=== PATIENT | male | born 1970 | race Caucasian/White ===

== ENCOUNTER → 2023-11-11 07:31 | Outpatient (REF) | payer OTHER, SELFPAY | LOC: RAD 07:31 | PROVIDERS: ATTENDING PHYSICIAN Family Medicine | DX: G89.29 Other chronic pain (principal); R74.8 Abnormal levels of other serum enzymes | CPT/HCPCS: 76700 ==

== ENCOUNTER → 2023-12-27 07:34 | Outpatient (REF) | payer OTHER, SELFPAY | LOC: RAD 07:34 | PROVIDERS: ATTENDING PHYSICIAN Internal Medicine Gastroenterology; FAMILY PHYSICIAN Family Medicine | DX: R79.89 Other specified abnormal findings of blood chemistry (principal) | CPT/HCPCS: 76700; 93975 ==

== ENCOUNTER 2024-01-09 18:01 | Emergency (ER) | payer OTHER, SELFPAY ==
[2024-01-09 18:02] VITALS: BP 164/100
[2024-01-09] MEDS: DILAUDID 1 MG IV (18:17)
[2024-01-09] MEDS: ZOFRAN 4 MG IV (18:20)
[2024-01-09] MEDS: NSS 1000 IV (18:21)
[2024-01-09 18:23] LABS: % Basophils 0.2 % (0-2); % Eosinophils 2.9 % (0-6); % Immature Granulocytes 0.2 % (0-0.5); % Lymphocytes 33.3 % (20.5-51.1); % Monocytes 10.2 % (1.7-9.3); % Neutrophils 53.2 % (42.2-75.2); Absolute Eosinophils 0.2 10^3/uL (0-0.7); Absolute Lymphocytes 2.7 10^3/uL (1.2-3.4); Absolute Monocytes 0.8 10^3/uL (0.1-0.6); Absolute Neutrophils 4.3 10^3/uL (1.4-6.5); Hematocrit 40.1 % (39.0-52.0); Hemoglobin 13.5 g/dL (13.0-18.0); Mean Corp Hgb Conc. 33.7 g/dL (33.0-37.0); Mean Corpuscular Hgb 29.3 pg (27.0-31.0); Mean Corpuscular Volume 87.2 fL (80.0-94.0); Mean Platelet Volume 10.4 fL (7.4-10.4); Nucleated Red Blood Cells % 0 % (-); Platelet Count 263 10^3/uL (130-400)
[2024-01-09] MEDS: TORADOL 30 MG IV (18:26)
[2024-01-09 18:32] VITALS: BMI 28.8
[2024-01-09 18:41] LABS: ALT (SGPT) 35 U/L (0-50); AST (SGOT) 36 U/L (17-59); Albumin 5.4 g/dl (3.5-5.0); Alkaline Phosphatase 54 U/L (38-126); Blood Urea Nitrogen 20 mg/dl (9-20); Calcium 11.2 mg/dl (8.4-10.2); Carbon Dioxide 20 mmol/L (22-30); Chloride 106 mmol/L (98-107); Estimated Creatinine Clearance 67 ml/min; Glucose 117 mg/dl (70-99); Sodium 143 mmol/L (135-145); Total Bilirubin 0.3 mg/dl (0.2-1.3); Total Protein 8.3 g/dl (6.3-8.2); eGFR > 60.00
--- NOTE | 2024-01-09 18:43 | ED.GENMED ---
History of Present Illness
General
Chief Complaint: Flank Pain
Source: patient
Exam Limitations: none
Time Seen by Provider: 01/09/24 18:10
History of Present Illness
History of Present Illness:
This is a 53 year old male that comes in with c/o right flank pain. States that this morning he had a dull pain. States that he got home from work and the pain increased to severe pain. States that he is nauseated and has been diaphoretic. Denies
any fever, chills, chest pain, SOB, abd pain, vomiting, diarrhea, headache, dizziness, urinary burning.
Past History
Past History
ED Past Medical History: HTN, Hypercholesterolemia and Other (Headaches, PNA, Renal calculus, Anemia, )
ED Past Surgical History: Orthopedic (Left hand repair with screw) and Other (Hernia repair)
Social History
Tobacco: Non-smoker
Alcohol: Occasional
Drug: Marijuana
Personal:
Living: with family
Employment: Employed
Review of Systems
Review of Systems
All Other Systems: ROS reviewed and negative except as documented in HPI and ROS
Constitutional: Denies fever or chills
EENT: Reports no symptoms
Respiratory: Reports no symptoms; Denies cough or trouble breathing
Cardiac: Reports no symptoms; Denies chest pain
ABD/GI: Reports nausea; Denies abdominal pain, vomiting or diarrhea
: Reports flank pain (Right sided); Denies dysuria, frequency or urgency
Musculoskeletal: Reports no symptoms
Skin: Reports no symptoms
Neurological: Reports no symptoms; Denies dizzy or headache
Psychiatric: Reports no symptoms
Phy Exam
General Physical Exam
General Presentation: moderate distress
General age: appears stated age
General Skin: cool and diaphoretic
General Habitus: normal
General Mental: alert
General Hydration: appears well hydrated
ENT Exam
ENT Exam: TM's normal, pharynx normal and neck supple
Eye Exam
Eye Exam: EOMI
Cardiovascular Exam
Cardiovascular Exam: regular rate/rhythm, no edema, no murmur and normal peripheral pulses
Pulmonary Exam
Pulmonary Exam: lungs clear, no respiratory distress, no rales, chest non tender, no crackles, no rhonchi, no wheezing and no cough
Gastrointestinal Exam
Gastrointestinal Exam: normal bowel sounds, non tender, soft, no organomegaly, no pulsatile mass, non distended and no cva tenderness
Musculoskeletal Exam
Musculoskeletal Exam: full ROM and no edema
Skin Exam
Skin Exam: normal color, no rash and diaphoresis
Psychiatric Exam
Psychiatric Exam: normal mood/affect
Course
Orders/Labs/Results
Orders:
Orders
01/09/24 18:07
IV Insert/Care/Rem.- Treatment PRN
01/09/24 18:13
Complete Blood Count/With Diff Urgent
Comprehensive Metabolic Panel Urgent
01/09/24 18:14
Ondansetron Injectable [Zofran] 4 mg .ROUTE .STK-MED ONE
01/09/24 18:16
HYDROmorphone [Dilaudid] 1 mg IV NOW STA
01/09/24 18:20
Ondansetron Injectable [Zofran] 4 mg IV NOW STA
01/09/24 18:21
0.9% Sodium Chloride 500 ml [Nss] 1,000 ml IV BOLUS
01/09/24 18:24
Ketorolac [Toradol] 30 mg .ROUTE .STK-MED ONE
01/09/24 18:26
Ketorolac [Toradol] 30 mg IV NOW STA
01/09/24 18:42
CT Abd/pel Without Iv Or Oral Urgent
Comment:
Reason For Exam: Right flank pain
01/09/24 19:41
Urinalysis Reflex To Culture Urgent
Date Specimen was Collected: 01/09/24
Time Specimen was Collected: 19:38
Urine Microscopic Reflex Cult Urgent
Abnormal Lab Results
01/09/24 01/09/24
18:13 19:41
RBC 4.60 L 10^6/uL
(4.70-6.10)
Absolute Monos (auto) 0.8 H 10^3/uL
(0.1-0.6)
Monocytes % 10.2 H %
(1.7-9.3)
Carbon Dioxide 20 L mmol/L
(22-30)
Glucose 117 H mg/dl
(70-99)
Calcium 11.2 H mg/dl
(8.4-10.2)
Total Protein 8.3 H g/dl
(6.3-8.2)
Albumin 5.4 H g/dl
(3.5-5.0)
Ur Occult Blood Reflex 3+ A
(Negative)
Leukocyte Esterase Rfl Trace A
(Negative)
Urine RBC 11-15 A /HPF
(0-2)
Urine Bacteria (Reflex) Few A
(Negative)
01/09/24 18:13
01/09/24 18:13
carbon dioxide slightly low. Hyperglycemia. Hypercalcemia, Urine is negative for infection.
Vital Signs
Initial and Last Documented VS:
Initial Vital Signs
Pulse Resp BP Pulse Ox
64 28 164/100 100
01/09/24 18:02 01/09/24 18:02 01/09/24 18:02 01/09/24 18:02
Last Documented Vital Signs
Temp Pulse Resp BP Pulse Ox
97.8 F 69 20 128/82 100
01/09/24 21:22 01/09/24 21:22 01/09/24 21:22 01/09/24 21:22 01/09/24 21:22
MDM/Problems Addressed
Differential Diagnosis Includes:
Renal calculus,
MDM/Problems Addressed:
This is a 53 year old male that comes in with c/o right flank pain. States that it started dull this morning and but then has become severe after getting home toninght.
Will check labs, CT scan and medicate for pain and given IV fluids
Back into see patient. Explained that he has a 3mm stone that is almost to the bladder. Will place patient on Flomax. Patient will also have prescription for Zofran and Percocet sent to his pharmay. Patient can use Tylenol and IBuprofen for lesser
pain. Strain his urine and follow up with the Urologist. Patient to return with any concerns.
Chronic conditions affecting care:
Renal caclulus
Acute Exacerbation and/or Progression of Chronic Illness:
Renal calculus
*Radiology
Radiology exam reviewed: radiology read reviewed (CT-3mm obstructing stone within the distal right ureter with associated mild hydroureteronephrosis. There are additional nonobstructing stones on the left measuring up to 4mm. )
*Pulse Oximetry
Patient hypoxic: no
*EKG
Interpreted by ED Provider?: NA
Rate: EKG- N/A
*Hand Picker Interpretation
Rate: Hand Picker- N/A
*Critical Care Note
Total Time (30-74mins, 75-104mins- exclusive of procedures): Not Applicable
ED Attending Note
-
Portions of this chart may have been created with voice recognition software.� Occasional wrong word or��sound alike� substitutions may have occurred due to the inherent limitations of voice recognition software.
Discharge Plan
Departure
Patient Disposition: Home (Routine Discharge)
Date of Disposition: 01/09/24
Time of Disposition: 21:50
Patient with high blood pressure during this ER visit?: Yes
Condition: Good
Covid-19: Not Applicable
Discharge Problem:
Renal calculus, right
Instructions: Renal Colic (DC), How to Strain Your Urine, BLOOD PRESSURE, Narcotic Pain Medication
Prescriptions:
New
tamsulosin [Flomax] 0.4 mg capsule
0.4 mg PO HS Qty: 7 0RF
ondansetron 4 mg tablet,disintegrating
4 mg PO Q8H PRN (Reason: nausea and vomiting) Qty: 10 0RF
oxycodone-acetaminophen [Endocet] 5-325 mg tablet
1 tab PO Q6H PRN (Reason: Pain) Qty: 7 0RF
No Action
atorvastatin 10 mg Tablet
20 mg PO DAILY
lisinopril 10 mg Tablet
10 mg PO DAILY
sertraline [Zoloft] 20 mg/mL Concentrate
100 mg PO DAILY
fenofibrate
134 mg PO DAILY
Referrals:
Raúl Crystal MD [Active] - Follow up in 5-7 days
Koko Ríos MD [Family Provider] -
Activity Restrictions/Additional Instructions:
As discussed, you have a 3mm stone that is almost to the bladder. There are other stones noted on the left but until they move out of the kidney the normally do not cause pain. Please increase your water intake to 8-8oz glasses daily. You have had
three prescription sent to your Pharmacy. You may use Ibuprofen 600mg every 6 hours with food for lesser pain. You have had a prescription for Zofran which will help with any nausea/vomiting. The second is Flomax which will help relax the smooth
muscle so you can pass the stone and the last is a narcotic pain medication for severe pain. Please do not take any extra Tylenol as Percocet has Tylenol in it. Please strain your urine. Follow up with the Urologist in the next 5-7 days. IF YOU
HAVE INCREASED OR CHANGING PAIN, FEVER, ARE UNABLE TO URINATE OR YOU HAVE ANY OTHER CONCERNS PLEASE RETURN TO THE EMERGENCY ROOM.
Interventions
Interventions:
*Risk Screen - Suicide Last Done: 01/09/24 18:28
*General Assessment Last Done: 01/09/24 18:27
*Neglect/Abuse Screening Last Done: 01/09/24 18:28
ED- Fall Risk Assessment Last Done: 01/09/24 18:28
*ED COVID-19 Vaccine History Last Done: 01/09/24 18:27
HE-Oasibr-Tgvvzdrvhi Assessment Last Done: 01/09/24 18:29
ED-Male Genitourinary Assessment Last Done: 01/09/24 18:29
Discharge Date and Time
Print Language: GREENLANDIC
[2024-01-09 19:51] LABS: Urine Albumin Negative (Neg - Trace); Urine Bilirubin Negative (Negative); Urine Character Clear (Clear); Urine Color Yellow; Urine Glucose Negative (Negative); Urine Ketone Negative (Negative); Urine Leukocyte Trace (Negative); Urine Nitrite Negative (Negative); Urine Occult Blood 3+ (Negative); Urine Specific Gravity 1.015 (<1.030); Urine Urobilinogen Negative (Neg - 1+)
[2024-01-09 20:10] LABS: Urine Mucus Moderate; Urine Squamous Cell 0-2 /LPF (Few)
[2024-01-09 20:12] LABS: Urine Bacteria Few (Negative)
[2024-01-09 21:22] VITALS: BP 128/82
[2024-01-09] MEDS: FLOMAX 0.4 MG PO (22:20)
[2024-01-09] MEDS: PERCOCET 5/325 1 TABLET PO (22:21)
== END 2024-01-09 23:46 | disposition home or self-care (01) ==
LOC: EMR 18:01
PROVIDERS: Clinical Nurse Specialist Family Health; EMERGENCY PHYSICIAN Emergency Medicine; FAMILY PHYSICIAN Family Medicine; REFERRING PHYSICIAN Specialist
DX: N13.2 Hydronephrosis with renal and ureteral calculous obstruction (principal); I10 Essential (primary) hypertension
CPT/HCPCS: 99284; 96374; 96375 ×2; 96361 ×4; 74176; 80053; 81003; 81015; 85025